=== PATIENT | female | born 1950 | race Caucasian/White ===

== ENCOUNTER → 2020-10-16 | Outpatient (CLI) | payer OTHER ==
[~2020-10-16] MED LIST: ELIQUIS5 MG PO; IBUPROFEN 200200 M1 PO; LOSARTAN POTASS50 MG PO; MAGNESIUM250 M1 PO; MELATONIN10 M3 PO; METOPROLOL TART25 MG PO; MULTIPLE VITAM1 EAC2 PO; PRESERVISION A1 EACH PO; PROTONIX40 M2 PO
[2020-10-16 13:42] LABS: HEMATOCRIT 40.2 % (37.0-47.0); HEMOGLOBIN 13.9 gm/dL (12.0-15.0); MCH 30.4 pg (26.0-34.0); MCHC 34.5 g/dL (28.0-37.0); RBC 4.56 mil/uL (4.20-5.00); RDW 14.6 % (10.5-14.5); WBC 7.9 thou/uL (4.0-11.0)
[2020-10-16 13:55] LABS: ALBUMIN 3.6 g/dL (3.4-5.0); CALCIUM 9.3 mg/dL (8.5-10.1); CREATININE 1.4 mg/dL (0.6-1.0); POTASSIUM 4.7 mmol/L (3.5-5.1)
[2020-10-16 13:57] LABS: URINE BILIRUBIN NEGATIVE (Negative); URINE BLOOD NEGATIVE (Negative); URINE CLARITY SL CLOUDY; URINE COLOR YELLOW; URINE GLUCOSE-RANDOM* NEGATIVE (Negative); URINE KETONES NEGATIVE (Negative); URINE NITRITE-REFLEX NEGATIVE (Negative); URINE PROTEIN (DIPSTICK) NEGATIVE (Negative); URINE SPECIFIC GRAVITY 1.025 (1.005-1.035); URINE UROBILINOGEN 0.2 E.U./dl (0.2-1.0)
[2020-10-16 13:58] LABS: INR 0.96; PROTIME 10.5 Seconds (10.5-12.1)
[2020-10-16 14:22] LABS: URINE LEUKOCYTES-REFLEX 1+ (Negative)
[2020-10-16 14:29] LABS: SQUAMOUS 0-3 Few /LPF (0-3); URINE WBC-REFLEX 6-15 Few /HPF (0-5); WBC CLUMPS Few (None Seen)
[2020-10-16 14:30] LABS: URINE RBC 1-2 Rare /HPF (NONE SEEN)
[2020-10-16 14:31] LABS: CALCIUM OXALATE 4-10 Moderate /LPF (None Seen); HYALINE CASTS 0-3 Few /LPF (None Seen); MUCUS 4-6 Moderate strn/LPF (None Seen)
== END ==
LOC: PAC 09:43
PROVIDERS: ATTEND Orthopaedic Surgery
DX: Z01.812 Encounter for preprocedural laboratory examination (principal); M16.11 Unilateral primary osteoarthritis, right hip; I10 Essential (primary) hypertension

== ENCOUNTER 2020-10-27 07:32 | Observation (INO) | payer OTHER ==
[~2020-10-27] VITALS: Ht 160 cm; Wt 77.1 kg
[2020-10-27 09:01] VITALS: BP 158/76
[2020-10-27 20:39] VITALS: BP 106/52
--- NOTE | 2020-10-28 01:20 | NUR ---
ASSUMED PT CARE AT 1900.PT'S DTRS AT BEDSIDE AT START OF SHIFT.PT WAS WORRIED THAT SHE IS IN AFIB AT HS,PT WAS REASSESSED,WAS FOUND TO BE REGULAR RATE.PT WAS PUT ON TELE,WAS SR.PT NOTIFIED.PO PAIN MED GIVEN FOR PAIN.PT CONT ON HER IVF AND IV ABX ORDERED.PT REF HER ABDUCTOR PILLOW,STATES THAT IT HURTS HER LEGS.PT ALSO REF TO TAKE HER METOPROLOL AT HS DUE TO HER LOW BP.DRSG C/D/I,ICE PACK IN PLACE.PT TESTING ON HER BED AT THIS TIME.CALL LIGHT WITHIN REACH.
[2020-10-28 04:14] VITALS: BP 123/56
[2020-10-28 07:03] VITALS: BP 113/57
[2020-10-28] MEDS ORDERED: ELIQUIS2.5 MG PO (09:53)
--- NOTE | 2020-10-28 10:28 | NUR ---
A/O X 4. ROOM AIR. SR ON TELE. RIGHT HAND IV WITH D5 0.45 NS INFUSING @ 100 MLS/HR. ONE ASSIST WITH TRANSFERS. GARRISON DRESSING DRY, CLEAN, AND INTACT TO RIGHT HIP, HAS BEEN USING ICE PACKS WHICH HAS HELPED WITH PAIN. PATIENT WAS NEEDING PAIN MEDICATION FOR BREAKTROUGH PAIN. NURSE CALLED DR. PHU ABDUL AND PATIENT IS ABLE TO HAVE 2 TABS NORCO PRN Q 4 HOURS FOR PAIN 7-10. NO MUSCLE SPASM MEDICATION WAS ADDED. PATIENT USES THE BEDSIDE COMMODE. SHE WANTS TO STAY AT THE HOSPITAL ONE MORE DAY.
--- NOTE | 2020-10-28 10:54 | NUR ---
ASSESSMENT: CM REVIEWED CHART AND SPOKE WITH PATIENT AT THE BEDSIDE. PT IS ALERT AND ORIENTED X4. PT IS S/P TOTAL HIP REPLACEMENT. PT REPORTS THAT SHE LIVES ALONE BUT REPORTS HER DAUGHTER WILL BE STAYING WITH HER FOR TWO WEEKS AT DISCHARGE. PT STATES HER OTHER DAUGHTER ONLY LIVES SIX MILES AWAY FROM HERE SO IS CLOSE IF SHE NEEDS SOMETHING. PT REPORTS THAT SHE HAS A NO STEPS TO ENTER HER HOME OR ONCE INSIDE. PT STATES SHE HAS A WALKER AT HOME BUT IS NEEDING A FWW. CM NOTIFIED [employer] FROM [employer] WHO VERIFIED PTS INSURANCE AND PROVIDED A WALKER TO HER BEDSIDE. PT REPORTS THAT SHE HAS A SHOWER CHAIR AND GRAB BAR AND IS INDEPENDENT WITH ADLS. PT RPEORTS SHE HAS OUTPATIENT THERAPY ARRANGED AT [facility] IN [place] TO BEGIN TOMORROW. PT DOES NOT ANTICIPATE HAVING ANY NEEDS FROM CM. CM WILL CONTINUE TO FOLLOW TO ASSIST NEEDED.
[2020-10-28 10:56] VITALS: BP 113/57
[2020-10-28 19:44] VITALS: BP 116/58
--- NOTE | 2020-10-29 00:24 | NUR ---
PT C/O PAIN ON HER NECK,STATED THAT SHE MUST HAVE PULLED A MUSCLE WHEN SHE WAS GOTTEN UP TO THE BSC.PAIN MED ADMINISTERED WITH A LITTLE RELIEF.DRSG TO HER R HIP C/D/I,ICE PACK AND NED HOSE IN PLACE.PT LOOKING FORWARD TO BE DC'D LATER TODAY.CALL LIGHT WITHIN REACH.
[2020-10-29 04:42] VITALS: BP 158/86
[2020-10-29 07:00] VITALS: BP 116/61
[2020-10-29] MEDS ORDERED: MS CONTIN15 MG PO (14:56)
[2020-10-29] MEDS ORDERED: HYDROCODON-ACE1 EAC7 PO (14:56)
[2020-10-29 15:25] VITALS: BP 113/57
--- NOTE | 2020-10-29 15:40 | NUR ---
PT PROGRESSING WELL. AMBULATING W/ WALKER AND DOING EXERCISES. UP IN CHAIR FOR SEVERAL HOURS. PAIN WELL CONTROLLED W/ MEDS. EATING AND DRINKING WELL.
--- NOTE | 2020-10-30 09:22 | O ---
[facility] [place] [place] [address] OPERATIVE REPORT Name: CHARLTOTE DICKINSON Sergio Room #: 442-P [facility] Ashwini Zhang#: [id number] Admission: 10/27/20 Attend Phys: Boni Rain MD Discharge: 10/29/20 Date of : 46 Report #: [id number] THIS REPORT FOR: cc: John Hilliard MD, Samuel D. MD Abraham,Boni Silverio MD ~ DATE OF SERVICE: 10/27/2020 PREOPERATIVE DIAGNOSES: 1. Right hip osteoarthritis. 2. Retained hardware from previous percutaneous screw fixation for femoral neck fracture. POSTOPERATIVE DIAGNOSES: 1. Right hip osteoarthritis. 2. Retained hardware from previous percutaneous screw fixation for femoral neck fracture. PROCEDURES: 1. Right total hip arthroplasty. 2. Hardware removal of three percutaneous femoral neck screws. SURGEON: Boni Rain MD FIRE TENDER: Connie Todd PA-C INDICATION FOR FIRE TENDER: Extensive retraction, manipulation of the hip was required including dislocation and reduction. This is supported by my senior sales assistant. ANESTHESIA: General. IMPLANTS: [employer] size 10 standard offset Synergy cemented stem, a size 52 R3 acetabular cup with two acetabular screws and a size 36+0 cobalt chrome head. ESTIMATED BLOOD LOSS: 150 mL. COMPLICATIONS: None. SPECIMENS: None. CONDITION UPON LEAVING THE OR: Stable. INDICATIONS FOR PROCEDURE: The patient is a 69-year-old female who has right hip osteoarthritis. She has previously had a femoral neck fracture on that side [facility] [place] [address] OPERATIVE REPORT Name: CHARLOTTE DICKINSON Sergio Room #: 442-P [facility] Ashwini Zhang#: [id number] Admission: 10/27/20 Attend Phys: Boni Rain MD Discharge: 10/29/20 Date of : 46 Report #: [id number] and was treated with percutaneous screw fixation. She has had continued hip pain and obvious loss of joint space on her x-ray. After discussion with her and failure of conservative measures, she elected for right total hip arthroplasty. DESCRIPTION OF PROCEDURE: Risks, benefits, alternatives, complications were discussed in detail with the patient including but not limited to risk of anesthesia, risk of damage to nerves, arteries, blood vessels, risk for infection, bleeding, risk for continued hip pain, leg length discrepancy, instability and need for reoperation. Informed consent was obtained from the patient and the right hip was appropriately marked in the preoperative holding area. IV Ancef was given for preoperative antibiotics. She was brought to the operating room and placed in the supine position on the operating room table. LMA anesthesia was induced without complication. She was then placed in the left lateral decubitus position with the right hip uppermost. Right hip and lower extremity were prepped and draped in normal sterile fashion. Timeout was performed, properly identifying the patient, procedure, as well as the instrumentation and implants. All in the operating room in agreement. Standard posterior approach to the hip was made with 10 blade through the skin. Dissection was taken down to the fascia with Bovie cautery and Hurst elevator was used to clean the fascia. Fresh 10 blade was used to make a fascial incision. This was taken proximally and distally with curved Klein scissor. The screw heads from the previous percutaneous screw fixation were then palpated and Bovie was used to split the vastus lateralis down on to the screw heads themselves. Screws were then easily removed with hex head screwdriver. After this, piriformis tendon was identified, tagged and taken down with Bovie cautery. Short external rotators were also taken down with Bovie cautery. Capsulotomy was made and capsule ends were tagged for later repair. Hip was dislocated and there was extensive osteoarthritic change of the femoral head. Femoral neck cut was made 1 cm proximal to the lesser trochanter based on preoperative templating and the femoral head was removed. Deep acetabular retractors were placed. Labrum was removed sharply. Pulvinar was removed with Bovie cautery. Acetabulum was then sequentially reamed up to a size 52, at which point there was excellent bleeding cancellous bone. A size 51 trial cup was placed, found to have a good fit. Final size 52 R3 acetabular cup was placed and seated. One acetabular screw was placed for backup fixation and a polyethylene liner for a 36 head was placed. Attention was turned to the femur. This was reamed and broached up to a size 10, at which point the size 10 broach was stable, was trialed with a standard offset neck and a 36+0 head. Hip was reduced, taken through range of motion, found to be stable, found to have equal leg lengths. Hip was dislocated. The broach was removed and final size 10 standard offset Synergy cemented stem was cemented in place using standard cementation techniques. While the cement cured, a periarticular injection consisting of morphine, ropivacaine, epinephrine, and Toradol was placed around the hip joint capsule. After the cement cured, this was trialed with a 36+0 head. Hip was [address] [address] OPERATIVE REPORT Name: CHARLOTTE DICKINSON Room #: 442-P [facility] Ashwini Zhang#: [id number] Admission: 10/27/20 Attend Phys: Boni Rain MD Discharge: 10/29/20 Date of : 46 Report #: [id number] reduced, taken through range of motion, found to be stable, found to have equal leg lengths. The hip was dislocated one last time and a final size 36+0 cobalt chrome head was placed. Hip was reduced, taken through range of motion, found to be stable, found to have equal leg lengths. Wound was thoroughly irrigated with normal saline. A gram of vancomycin was placed deep in the joint. The capsule and piriformis were repaired with 0 FiberWire. Fascia was closed with 0 Vicryl. Skin was closed with 2-0 Vicryl, skin staple and a GARRISON dressing was applied. The patient tolerated this procedure well and went to recovery room under care of anesthesia postoperatively. <ELECTRONICALLY SIGNED> By: Boni Rain MD 10/30/20 0922 [id number] Boni Rain MD /nt
== END 2020-10-29 17:34 | disposition home or self-care (01) ==
LOC: OR → 4S 17:10
PROVIDERS: ADMIT Orthopaedic Surgery; ATTEND Orthopaedic Surgery
DX: M16.11 Unilateral primary osteoarthritis, right hip (principal); Z20.822 Contact with and (suspected) exposure to COVID-19; Z79.899 Other long term (current) drug therapy
CPT/HCPCS: 50010; 50101; 50382; 50414; 51057; 51130; 51225; 51226; 51412; 53000; 53078; 53367; 56460; 56524; 56528; 56530; 57095; 57103; 62110; 62900; 70005